=== PATIENT | male | born 2000 | race Two or more races ===

== ENCOUNTER 2019-03-27 14:45 | Emergency (ER) | payer OTHER ==
[~2019-03-27] VITALS: Ht 177.8 cm; Wt 113.4 kg
[~2019-03-27 14:45] MED LIST: BENADRYL25 MG PO; DOXYCYCLINE HY100 MG PO; HIBICLENS118 ML TOP; MINOCIN100 MG PO; NASONEX17 GM TOP; XYZAL5 MG PO; ZYRTEC10 M3 PO
== END 2019-03-28 00:01 | disposition home or self-care (01) ==
LOC: ER 14:45
DX: R11.2 Nausea with vomiting, unspecified (principal); A05.8 Other specified bacterial foodborne intoxications; E86.0 Dehydration; B96.0 Mycoplasma pneumoniae [M. pneumoniae] as the cause of diseases classified elsewhere; E87.8 Other disorders of electrolyte and fluid balance, not elsewhere classified

== ENCOUNTER → 2020-08-30 | Emergency (ER) | payer OTHER ==
[~2020-08-30] VITALS: Ht 180.3 cm; Wt 131.1 kg
[~2020-08-30] MED LIST changes: +ALLEGRA-D 24 H1 EACH PO; +MEDROL8 MG PO
== END | disposition home or self-care (01) ==
LOC: ER 23:00
DX: L30.8 Other specified dermatitis (principal)